=== PATIENT | male | born 1955 | race Caucasian/White ===

== ENCOUNTER → 2018-04-26 | Outpatient (CLI) | payer OTHER ==
--- NOTE | 2018-04-26 12:08 | KCIC ---
Indication:Abnormal liver function tests TECHNIQUE: Grayscale, color Doppler and spectral waveform is of the abdomen obtained. COMPARISON:None FINDINGS: Visualized pancreas is within normal limits. No gallstones, pericholecystic fluid or gallbladder wall thickening. IVC within normal limits. Well-circumscribed anechoic lesion is seen in the liver measuring 2.1 x 2.0 x 2.3 cm without internal vascularity most likely hepatic cysts. Additional similar lesion is seen adjacent to the above-mentioned lesion approximately measuring 0.6 x 0.9 x 0.5 cm. Liver measures 17 cm in longest dimension and is normal in size with diffuse increased echogenicity. Main portal vein is patent. CBD measures 5 cm in diameter and is within normal limits. Right kidney measures 11.1 cm in length without hydronephrosis. IMPRESSION: 1. Hepatic steatosis. 2. Couple of hepatic cyst/cystic biliary hamartomas. Electronically signed by: Gregory Connelly DO (04/26/2018 12:05 PM) [facility]
== END | disposition home or self-care (01) ==
LOC: KCIC US 11:20
PROVIDERS: ATTEND Family Medicine
DX: K76.0 Fatty (change of) liver, not elsewhere classified (principal); K76.89 Other specified diseases of liver
CPT/HCPCS: 76705